=== PATIENT | male | born 1990 | race Caucasian/White ===

== ENCOUNTER 2021-12-04 17:43 | Emergency (ER) | payer OTHER ==
[~2021-12-04] VITALS: Ht 175.3 cm; Wt 104.3 kg
[2021-12-04] MEDS ORDERED: KETOROLAC TROMETHAMINE 15 MG INJ ONE (18:33)
[2021-12-04] MEDS ORDERED: KETOROLAC TROMETHAMINE 15 MG INJ IM ONE (18:45)
--- NOTE | 2021-12-04 22:10 | NUR ---
PATIENT WAS PLACED IN HALLWAY ON [facility] [address] DUE TO NO ROOMS AVAILABLE IN THE ER.
[2021-12-04] MEDS ORDERED: TDAP DIPH,PERTUSS,TET VAC/PF 0.5 ML DISP.SYRIN IM ONE ×2 (22:38→22:45)
[2021-12-04] MEDS ORDERED: NAPR-1164 PO (22:42)
--- NOTE | 2021-12-04 22:48 | NUR ---
Patient discharged to home in stable condition WITH GIRLFRIEND TAKING PATIENT HOME. Written and verbal after care instructions given. Patient verbalizes understanding of instructions. Stressed follow up or return to ER for worsening s/s.
[2021-12-04 22:49] VITALS: BP 128/74
== END 2021-12-04 22:49 | disposition home or self-care (01) ==
LOC: ER 17:45
DX: S09.90XA Unspecified injury of head, initial encounter (principal); V49.49XA Driver injured in collision with other motor vehicles in traffic accident, initial encounter; Y92.414 Local residential or business street as the place of occurrence of the external cause; S63.92XA Sprain of unspecified part of left wrist and hand, initial encounter
CPT/HCPCS: 99284; 73080; 73090; 73110; 73130; 90715; 96372; 90471; J1885; A4663